=== PATIENT | male | born 1955 | race Caucasian/White ===

== ENCOUNTER → 2021-10-18 06:57 | Outpatient (CLI) | payer OTHER, SELFPAY ==
[2021-10-18 08:13] LABS: BUN Creatinine Ratio 33.7 (6-22); Blood Urea Nitrogen 28 mg/dL (9-20); Calcium 8.9 mg/dL (8.4-10.2); Carbon Dioxide 26 mmol/L (22-32); Chloride 105 mmol/L (98-107); Cholesterol 120 mg/dL (140-199); Estimated Glomerular Filt Rate > 60.0 mL/min (>60); Glucose 131 mg/dL (80-110); HDL Cholesterol 52 mg/dL (40-60); HEMOLYSIS < 15 (0-50); LDL Cholesterol Calculated 55 mg/dL (<100); Potassium 4.5 mmol/L (3.4-5.1); Sodium 140 mmol/L (137-145); Triglycerides 63 mg/dL (35-150)
[2021-10-18 08:43] LABS: Prostate Specific Antigen Scrn 1.18 ng/mL (0.1-4.0)
[2021-10-18 09:00] LABS: Creatinine Urine Random 175.3 mg/dL
[2021-10-18 09:05] LABS: Microalbumi Creatinin Ratio Ur 7.4 ug/mg CR (<30); Microalbumin Urine Random 1.3 mg/dL (0-1.6)
== END ==
PROVIDERS: Family Provider Orthopaedic Surgery; Referring Provider Family Medicine; Visit Provider Family Medicine
DX: Z12.5 Encounter for screening for malignant neoplasm of prostate (principal); E78.2 Mixed hyperlipidemia; E11.9 Type 2 diabetes mellitus without complications; I10 Essential (primary) hypertension
CPT/HCPCS: 36415; 80048; 80061; 82043; 82570; G0103

== ENCOUNTER 2022-12-19 08:22 | Emergency (ER) | payer MEDICARE, SELFPAY ==
[2022-12-19] VITALS (9 sets, daily range): BP systolic 151–187; BP diastolic 64–88; PULSE 79–89; RESP 19; TEMP 36.9; O2SAT 95–97; BMI 26.9
--- NOTE | 2022-12-19 08:36 | DI.CT.S_ITS ---
PROCEDURE: CT KIDNEY URETER BLADDER (KUB) INDICATIONS: left sided flank pain eval for stone TECHNIQUE: Axial sections were acquired from the lung bases to the pubic symphysis. Coronal and sagittal reformats were performed. For radiation dose reduction, the following was used: automated exposure control, adjustment of mA and/or kV according to patient size. COMPARISON: None. FINDINGS: Lung bases: No pleural effusion. Patchy consolidative and ground-glass opacity present in the right lower lobe. URINARY: Punctate nonobstructing stone present at the right mid kidney. No left urinary stone visualized. No hydroureteronephrosis bilaterally. No bladder stones visualized. ABDOMEN: Liver: Unremarkable. Gallbladder: Unremarkable. Biliary ducts: Unremarkable. Pancreas: Unremarkable. Spleen: Unremarkable. Adrenal Glands: Unremarkable. Stomach and Bowel: No bowel obstruction. Moderate-severe predominantly sigmoid colonic diverticulosis without evidence of acute diverticulitis. Peritoneum: No abnormal intraperitoneal fluid. No free air. Abdominal Nodes: No enlarged retroperitoneal or mesenteric lymph nodes. Vessels: Aorta and inferior vena cava are normal in size. PELVIS: Pelvic Organs: Unremarkable. Pelvic Nodes: Unremarkable. Miscellaneous: Small fat containing right inguinal hernia. Bones: Multilevel degenerative change of the visualized spine. Bilateral L5-S1 pars defects with grade 1 anterolisthesis L5 on S1. IMPRESSION: 1. No left-sided urinary stone identified. No hydroureteronephrosis bilaterally. 2. Punctate nonobstructing right kidney stone present. 3. Right lower lobe opacities present suspicious for pneumonia and/or aspiration. Dictated by: Salvador Anaya M.D. on 12/19/2022 at 8:52 Approved by: Salvador Anaya M.D. on 12/19/2022 at 9:04
--- NOTE | 2022-12-19 08:36 | ED_ITS ---
HPI - General Adult General Chief complaint: Urogenital-Male Stated complaint: poss kidney stones T-1 fever/chills/tired Time Seen by Provider: 12/19/22 08:24 Source: patient Mode of arrival: Ambulatory Limitations: no limitations History of Present Illness HPI narrative: Patient is a 67-year-old male who many years ago had a kidney stone who is here for evaluation of left-sided back/flank pain. Is also having some dysuria. He also states he is constipated. He is also having chills. The symptoms started yesterday. No vomiting. He does feel very tired. He states that he thinks that this may feel like a prior kidney stone but not 100% convinced. Related Data Previous Rx's Medication Instructions Recorded azithromycin 250 mg tablet See Rx Instructions PO .COMPLEX #6 12/19/22 tabs Allergies Allergy/AdvReac Type Severity Reaction Status Date / Time No Known Drug Allergies Allergy Verified 12/19/22 09:13 Review of Systems Constitutional Constitutional: Reports system reviewed and no additional complaints, except as documented Gastrointestinal Gastrointestinal: Reports system reviewed and no additional complaints, except as documented Genitourinary Genitourinary: Reports system reviewed and no additional complaints, except as documented Musculoskeletal Musculoskeletal: Reports system reviewed and no additional complaints, except as documented Integumentary/Breasts Skin/Breast: Reports system reviewed and no additional complaints, except as documented Patient History Social History Smoking Status: Former smoker Exam Initial Vital Signs Initial Vital Signs: Vital Signs Temperature 98.5 F 12/19/22 08:38 Pulse Rate 80 12/19/22 08:38 Respiratory Rate 19 12/19/22 08:38 Blood Pressure 177/84 H 12/19/22 08:38 Pulse Oximetry 97 12/19/22 08:38 Oxygen Delivery Method Room Air 12/19/22 08:38 Const General: cooperative, comfortable and No ill appearing HENMT Head: normal to inspection and normocephalic Resp Effort & Inspection: normal respiratory effort Auscultation: clear to auscultation bilaterally Cardio Rate: regular rate GI Inspection: normal to inspection Palpation: soft and No tender Back/Spine/Pelvis Other: No specific CVA tenderness but he describes the discomfort over the left flank. Skin General: no rashes or lesions noted Neuro General: patient alert, patient awake and moves all extremities Extrem General: normal to inspection and capillary refill normal Course Orders Ordered: ED Orders 12/19/22 08:27 Basic Metabolic Panel Stat Complete Blood Count AUTO DIFF Stat 12/19/22 08:36 CT kidney ureter bladder (KUB) Stat Urine Culture Stat Urine Microscopic Stat 12/19/22 09:12 XR chest 2V Stat Vital Signs Vital signs: Vital Signs - 8 hr 12/19/22 08:38 12/19/22 08:44 12/19/22 08:45 Temperature 98.5 F Pulse Rate 80 85 Respiratory Rate 19 Blood Pressure 177/84 H 155/70 H Pulse Oximetry 97 97 Oxygen Delivery Method Room Air 12/19/22 08:45 12/19/22 09:00 12/19/22 09:00 Temperature Pulse Rate 84 79 Respiratory Rate Blood Pressure 151/64 H Pulse Oximetry 97 96 Oxygen Delivery Method 12/19/22 09:15 12/19/22 09:15 Temperature Pulse Rate 89 Respiratory Rate Blood Pressure 157/74 H Pulse Oximetry 97 Oxygen Delivery Method Medical Decision Making Lab Data Lab results reviewed: Yes I reviewed the patient's lab results. 12/19/22 08:27 12/19/22 08:27 Labs: Lab Results 12/19/22 12/19/22 12/19/22 Range/Units 08:27 08:27 08:36 WBC 7.4 (4.5-11.0) X10^3/uL RBC 4.84 (4.5-5.9) X10^6/uL Hgb 15.6 (13.5-17.5) g/dL Hct 44.4 (41-53) % MCV 91.8 (80-100) fL MCH 32.2 (26-34) PG MCHC 35.1 (30-36) % RDW 13.3 (11.6-14.8) % Plt Count 202 (150-400) X10^3/uL Neut % (Auto) 77.4 H (50-75) % Lymph % (Auto) 12.0 L (25-40) % [place] % (Auto) 9.9 (3-14) % Eos % (Auto) 0.2 L (2-4) % Baso % (Auto) 0.5 (0-2) % Neut # (Auto) 5700 (4869-5391) /uL Lymph # (Auto) 900 L (2291-7793) /uL [place] # (Auto) 700 (0-900) /uL Eos # (Auto) 0 (0-450) /uL Baso # (Auto) 0 (0-100) /uL Sodium 132 L (137-145) mmol/L Potassium 4.3 (3.4-5.1) mmol/L Chloride 95 L (98-107) mmol/L Carbon Dioxide 28 (22-32) mmol/L BUN 12 (9-20) mg/dL Creatinine 1.01 (0.66-1.25) mg/dL Estimated GFR > 60 (>60) mL/min BUN/Creatinine Ratio 11.9 (6-22) Glucose 144 H (80-110) mg/dL Calcium 9.2 (8.4-10.2) mg/dL Urine RBC None seen (0-5/HPF) Urine WBC None seen (0-5/HPF) Ur Squamous Epith Cells None seen (0-5/HPF) Urine Bacteria None seen (None) Ur Culture Indicated? Cult not indicated Urine Dip Bedside Urine Glucose Negative Bedside Urine Bilirubin - Negative Bedside Urine Ketone + 15 Urine Specific [place] 1.015 Bedside Urine Occult Blood - Negative Bedside Urine pH 5.5 Bedside Urine Protein - Negative Bedside Urine Urobilinogen - Negative Bedside Urine Nitrite - Negative Bedside Urine Leukocytes - Negative Esterase Point of care testing: Urine Dip Bedside Urine Glucose Negative Bedside Urine Bilirubin - Negative Bedside Urine Ketone + 15 Urine Specific [place] 1.015 Bedside Urine Occult Blood - Negative Bedside Urine pH 5.5 Bedside Urine Protein - Negative Bedside Urine Urobilinogen - Negative Bedside Urine Nitrite - Negative Bedside Urine Leukocytes - Negative Esterase Imaging Data Chest x-ray: Radiologist's Impression: PROCEDURE:? CT KIDNEY URETER BLADDER (KUB) ? INDICATIONS:? left sided flank pain eval for stone ? TECHNIQUE:? Axial sections were acquired from the lung bases to the pubic symphysis.? Coronal and sagittal reformats were performed.? For radiation dose reduction, the following was used: ?automated exposure control, adjustment of mA and/or kV according to patient size.? ? COMPARISON:? None. ? FINDINGS:? ? Lung bases:? No pleural effusion.? Patchy consolidative and ground-glass opacity present in the right lower lobe. ? URINARY:? Punctate nonobstructing stone present at the right mid kidney.? No left urinary stone visualized.? No hydroureteronephrosis bilaterally.? No bladder stones visualized. ? ABDOMEN: Liver:? Unremarkable.? ? Gallbladder:? Unremarkable.? ? Biliary ducts:? Unremarkable.? ? Pancreas:? Unremarkable.? ? Spleen:? Unremarkable.? ? Adrenal Glands:? Unremarkable.? ? ? Stomach and Bowel:? No bowel obstruction.? Moderate-severe predominantly sigmoid colonic diverticulosis without evidence of acute diverticulitis. Peritoneum:? No abnormal intraperitoneal fluid.? No free air.? ? Abdominal Nodes:? No enlarged retroperitoneal or mesenteric lymph nodes.? Vessels:? Aorta and inferior vena cava are normal in size.? ? PELVIS: Pelvic Organs:? Unremarkable.? ? Pelvic Nodes: Unremarkable. Miscellaneous:? Small fat containing right inguinal hernia. ? Bones:? Multilevel degenerative change of the visualized spine.? Bilateral L5-S1 pars defects with grade 1 anterolisthesis L5 on S1. ? IMPRESSION:? ? 1. No left-sided urinary stone identified.? No hydroureteronephrosis bilaterally. 2. Punctate nonobstructing right kidney stone present. 3. Right lower lobe opacities present suspicious for pneumonia and/or aspiration. CT scan - abdomen/pelvis: Radiologist's Impression: PROCEDURE:? XR CHEST 2V ? INDICATIONS:? eval for RLL PNA ? TECHNIQUE:? 2 views of the chest were acquired.? ? COMPARISON:? None. ? FINDINGS:? ? Surgical changes and devices:? None.? ? Lungs and pleura:? Ill-defined airspace opacities are seen in right lower lung field.? Left basilar atelectasis is also seen.? No pleural effusions or pneumothorax.? ? Mediastinum:? Mediastinal contours are normal.? Heart size is normal.? ? Bones and chest wall:? No suspicious bony abnormalities.? Soft tissues appear unremarkable.? ? IMPRESSION:? Finding is suggestive of small right lower lobe infiltrates.? Left basilar atelectasis.? No pleural effusion or pneumothorax. MDM Narrative Medical decision making narrative: CT scan of the abdomen shows no signs of kidney stones or other intra-abdominal surgical issues. Has no specific etiology to explain the patient's symptoms today. He does have findings on the CT scan that could be consistent with a right lower lobe pneumonia. Chest x-ray confirms this. This very well could be what is causing his fevers and chills in the way he has been feeling for the past couple days. He understands this does not directly explain his left-sided flank pain. We will place the patient on antibiotics. He was given return precautions and follow-up instructions. He expressed understanding and agreement. Discharge Plan Departure Patient Disposition: Home Clinical Impression: Pneumonia Instructions: DI for Pneumonia -- Adult Activity Restrictions/Additional Instructions: I do recommend that you take the antibiotics as directed. You can also consider taking a medicine called famotidine. This can be a medicine to help with any GI related issues in the 2 weeks when you are not taking your other reflux medications. Return to the emergency department for any new or worsening symptoms. Prescriptions: New azithromycin 250 mg tablet See Rx Instructions .ROUTE .COMPLEX Qty: 6 0RF Rx Instructions: For 250 mg dose pack: take 500 mg today (day 1), then 250 mg for 4 days (days 2-5) Referrals: Kyaw Rees MD [Primary Care Provider] - Stand Alone Forms: Patient Portal/API
[2022-12-19 08:48] LABS: Add Manual Diff / Slide Review NO; Basophils Absolute Auto 0 /uL (0-100); Basophils Percent Auto 0.5 % (0-2); Eosinophils Absolute Auto 0 /uL (0-450); Eosinophils Percent Auto 0.2 % (2-4); Hematocrit 44.4 % (41-53); Hemoglobin 15.6 g/dL (13.5-17.5); Lymphocytes Absolute Auto 900 /uL (1100-4500); Mean Corpuscular HGB Conc 35.1 % (30-36); Mean Corpuscular Hemoglobin 32.2 PG (26-34); Mean Corpuscular Volume 91.8 fL (80-100); Monocytes Absolute Auto 700 /uL (0-900); Monocytes Percent Auto 9.9 % (3-14); Neutrophils Absolute Auto 5700 /uL (1500-7000); Neutrophils Percent Auto 77.4 % (50-75); Platelet Count 202 X10^3/uL (150-400); Red Blood Cell Count 4.84 X10^6/uL (4.5-5.9); Red Cell Distribution Width 13.3 % (11.6-14.8); White Blood Cell Count 7.4 X10^3/uL (4.5-11.0)
[2022-12-19 08:52] LABS: Bacteria Urine None Seen; Culture Indicated Urine Cult Not Indicated; RBC Urine None Seen (0-5/HPF); Squamous Epithelial Cell Urine None Seen (0-5/HPF); WBC Urine None Seen (0-5/HPF)
[2022-12-19 09:01] LABS: BUN Creatinine Ratio 11.9 (6-22); Blood Urea Nitrogen 12 mg/dL (9-20); Calcium 9.2 mg/dL (8.4-10.2); Carbon Dioxide 28 mmol/L (22-32); Chloride 95 mmol/L (98-107); Estimated Glomerular Filt Rate > 60 mL/min (>60); Glucose 144 mg/dL (80-110); HEMOLYSIS 16 (0-50); Potassium 4.3 mmol/L (3.4-5.1); Sodium 132 mmol/L (137-145)
--- NOTE | 2022-12-19 09:12 | DI.RAD.S_ITS ---
PROCEDURE: XR CHEST 2V INDICATIONS: eval for RLL PNA TECHNIQUE: 2 views of the chest were acquired. COMPARISON: None. FINDINGS: Surgical changes and devices: None. Lungs and pleura: Ill-defined airspace opacities are seen in right lower lung field. Left basilar atelectasis is also seen. No pleural effusions or pneumothorax. Mediastinum: Mediastinal contours are normal. Heart size is normal. Bones and chest wall: No suspicious bony abnormalities. Soft tissues appear unremarkable. IMPRESSION: Finding is suggestive of small right lower lobe infiltrates. Left basilar atelectasis. No pleural effusion or pneumothorax. Dictated by: Malik Wayne M.D. on 12/19/2022 at 8:38 Approved by: Malik Wayne M.D. on 12/19/2022 at 8:38
== END 2022-12-19 10:14 | disposition home or self-care (01) ==
PROVIDERS: Emergency Provider Emergency Medicine; Family Provider Orthopaedic Surgery; PCP Family Medicine
DX: J18.9 Pneumonia, unspecified organism (principal); R30.0 Dysuria; R10.9 Unspecified abdominal pain; Z87.442 Personal history of urinary calculi
CPT/HCPCS: 36415; 71046; 74176; 80048; 81003; 81015; 85025; 87086; 99284

== ENCOUNTER → 2023-02-13 09:36 | Outpatient (CLI) | payer MEDICARE, SELFPAY ==
[2023-02-13 11:22] LABS: Alanine Aminotransferase 32 IU/L (<50); Albumin 4.6 g/dL (3.5-5.0); Albumin Globulin Ratio 1.6 (1.0-2.8); Alkaline Phosphatase 55 U/L (38-126); Aspartate Aminotransferase 38 IU/L (17-59); Bilirubin Unconjugated 0.9 mg/dL (0.0-1.1); Globulin 2.9 g/dL (1.7-4.1); HEMOLYSIS < 15 (0-50); Total Protein 7.5 g/dL (6.3-8.2)
[2023-02-13 11:42] LABS: Creatinine Urine Random 68.1 mg/dL
[2023-02-13 11:47] LABS: Microalbumin Urine Random < 0.6 mg/dL (0-1.6)
[2023-02-14 03:18] LABS: Labcorp Hemoglobin (Hb) A1c 6.3 % (4.8-5.6)
== END ==
PROVIDERS: Family Provider Orthopaedic Surgery; PCP Internal Medicine; Referring Provider Internal Medicine; Visit Provider Internal Medicine
DX: N40.1 Benign prostatic hyperplasia with lower urinary tract symptoms; E11.69 Type 2 diabetes mellitus with other specified complication; E78.5 Hyperlipidemia, unspecified; E78.2 Mixed hyperlipidemia; N13.8 Other obstructive and reflux uropathy
CPT/HCPCS: 36415; 80076; 82043; 82570; 83036; 84153; 84443

== ENCOUNTER → 2023-09-05 11:55 | Outpatient (CLI) | payer MEDICARE, SELFPAY ==
[2023-09-05 13:01] LABS: Aspartate Aminotransferase 33 IU/L (17-59); BUN Creatinine Ratio 32.1 (6-22); Blood Urea Nitrogen 25 mg/dL (9-20); Calcium 9.7 mg/dL (8.4-10.2); Carbon Dioxide 25 mmol/L (22-32); Chloride 104 mmol/L (98-107); Cholesterol 104 mg/dL (140-199); Estimated Glomerular Filt Rate > 60 mL/min (>60); Glucose 153 mg/dL (80-110); HDL Cholesterol 53 mg/dL (40-60); HEMOLYSIS < 15 (0-50); LDL Cholesterol Calculated 24 mg/dL (<100); Potassium 4.3 mmol/L (3.4-5.1); Sodium 139 mmol/L (137-145); Triglycerides 137 mg/dL (35-150)
== END ==
PROVIDERS: Family Provider Orthopaedic Surgery; PCP Internal Medicine; Referring Provider Internal Medicine; Visit Provider Internal Medicine
DX: E11.69 Type 2 diabetes mellitus with other specified complication (principal); E78.5 Hyperlipidemia, unspecified; E78.2 Mixed hyperlipidemia
CPT/HCPCS: 36415; 80048; 80061; 83036; 84450

== ENCOUNTER → 2024-07-01 10:43 | Outpatient (CLI) | payer MEDICARE, SELFPAY ==
[2024-07-01 12:44] LABS: Appearance Urine UA CLEAR; Bilirubin Urine UA NEGATIVE (NEGATIVE); Color Urine UA YELLOW; Glucose Urine UA NEGATIVE (Negative); Ketones Urine UA NEGATIVE (NEGATIVE); Leukocyte Esterase Urine UA NEGATIVE (NEGATIVE); Nitrite Urine UA NEGATIVE (Negative); Occult Blood Urine UA NEGATIVE (Negative); Protein Urine UA NEGATIVE (Negative); Specific Gravity Urine UA 1.015 (1.000-1.035); pH Urine UA 6.5 (4.5-8.0)
[2024-07-01 12:52] LABS: Urine Volume 10mL (spun)
[2024-07-01 12:53] LABS: Bacteria Urine None Seen; Culture Indicated Urine Cult Not Indicated; RBC Urine None Seen (0-5/HPF); Squamous Epithelial Cell Urine None Seen (0-5/HPF); WBC Urine None Seen (0-5/HPF)
[2024-07-01 12:56] LABS: Aspartate Aminotransferase 38 IU/L (17-59); BUN Creatinine Ratio 29.5 (6-22); Blood Urea Nitrogen 26 mg/dL (9-20); Calcium 9.8 mg/dL (8.4-10.2); Carbon Dioxide 27 mmol/L (22-32); Chloride 102 mmol/L (98-107); Cholesterol 102 mg/dL (140-199); Estimated Glomerular Filt Rate > 60 mL/min (>60); Glucose 108 mg/dL (80-110); HDL Cholesterol 54 mg/dL (40-60); HEMOLYSIS < 15 (0-50); LDL Cholesterol Calculated 18 mg/dL (<100); Potassium 5.3 mmol/L (3.4-5.1); Sodium 137 mmol/L (137-145); Triglycerides 149 mg/dL (35-150)
[2024-07-01 13:24] LABS: Prostate Specific Antigen 1.09 ng/mL (0.10-4.00)
[2024-07-01 15:48] LABS: Creatinine Urine Random 212.18 mg/dL
[2024-07-01 15:50] LABS: Microalbumin Urine Random 2.4 mg/dL (0-1.6)
== END ==
PROVIDERS: Family Provider Orthopaedic Surgery; PCP Internal Medicine; Referring Provider Internal Medicine; Visit Provider Internal Medicine
DX: E11.69 Type 2 diabetes mellitus with other specified complication (principal); N40.1 Benign prostatic hyperplasia with lower urinary tract symptoms; E78.5 Hyperlipidemia, unspecified; E78.2 Mixed hyperlipidemia; N13.8 Other obstructive and reflux uropathy; R10.9 Unspecified abdominal pain
CPT/HCPCS: 36415; 80048; 80061; 81001; 82043; 82570; 83036; 84153; 84450

== ENCOUNTER → 2024-07-21 10:33 | Outpatient (CLI) | payer MEDICARE, SELFPAY ==
--- NOTE | 2024-07-21 10:34 | DI.US.S_ITS ---
PROCEDURE: US RENAL COMPLETE INDICATIONS: RIGHT FLANK PAIN TECHNIQUE: Real-time scanning was performed of the kidneys and bladder, with image documentation. COMPARISON: None. FINDINGS: Kidneys: Kidneys are normal in size. Right kidney measures 11.8 cm long; left kidney measures 13.3 cm long. Right renal cortical thickness is 1.9 cm; left renal cortical thickness is 2 cm. Renal cortical echotexture is normal. No hydronephrosis. Questionable 0.7 cm calcification/stone within the right kidney midpole. No suspicious solid mass lesions. Bladder: Pre-void bladder volume is 64.7 mL. Post-void residual is 0 mL. Pre-void images demonstrate no intraluminal masses or stones. On pre-void images, bilateral ureteral jets are noted with color Doppler interrogation. (Of note, ureteral jets may not be detectable in up to 25% of cases due to insufficient differences in specific gravity between ureteral and bladder urine). Miscellaneous: No free pelvic fluid. IMPRESSION: Possible 0.7 cm nonobstructive right renal stone at the midpole. Otherwise, normal sonographic appearance of the kidneys and urinary bladder. Dictated by: Boom Guevara M.D. on 07/22/2024 at 8:26 Approved by: Boom Guevara M.D. on 07/22/2024 at 8:29
== END ==
PROVIDERS: Family Provider Orthopaedic Surgery; PCP Internal Medicine; Referring Provider Internal Medicine; Visit Provider Internal Medicine
DX: R10.9 Unspecified abdominal pain (principal)
CPT/HCPCS: 76770

== ENCOUNTER 2024-10-29 11:30 | Day surgery (SDC) | payer MEDICARE, SELFPAY ==
--- NOTE | 2024-10-29 | PATH_ITS ---
[facility] Accession Number: [id number] No. of containers..01 Tissue . 01 Material submitted: . colon - ASCENDING COLON POLYP . 01 Diagnosis: ASCENDING COLON POLYP: Tubular adenoma. [facility] 11/03/2024 1132 Local . 01 Electronically signed: . Jay Thompson MD, PhD, Pathologist NPI- [id number] . 01 Gross description: . ASCENDING COLON POLYP: Received in formalin is 1 fragment(s) of TISSUE/MUCOID measuring 0.7 x 0.3 x 0.3 cm submitted entirely in 1 cassette(s) /CAS[facility]IRO 11/02/2024 1706 Local . 01 Pathologist provided ICD-10: D12.2 . 01 CPT . 154549 Specimen Comment: A courtesy copy of this report has been sent to [phone] Performed at: [address] [facility] [id number] MD Boom Page MD Phone: [phone]
[2024-10-29] MEDS: LACTATED RINGERS 1,000 ML 100 ML IV (11:46)
[2024-10-29 12:10] VITALS: BP 149/93; PULSE 84; RESP 16; TEMP 36.8; O2SAT 97
--- NOTE | 2024-10-29 12:56 | P.HP_ITS ---
History of Present Illness History of Present Illness Date Patient Seen: 10/29/24 Time Patient Seen: 12:57 Chief complaint: Screening Colonoscopy Narrative: Stan is a 69-year-old man with rectal bleeding and hemorrhoids. See the office note from September for details. He had a improvement in his symptoms up until he started the prep last night. [facility] Medical History Chronic insomnia DM type 2 with diabetic dyslipidemia Essential hypertension Fractures GERD without esophagitis Mixed hyperlipidemia Osteoarthritis, hand, primary localized Tinea unguium Surgical History Anesthesia History of knee replacement (~2014) History of mandibular surgery (~1981) Social History details: (Jnena), two children, retired parking supervisor Smoking Status: Former smoker alcohol intake: current Meds Home Medications and Allergies Home Medications Medication Instructions Recorded Confirmed Type omeprazole 20 mg capsule,delayed 20 mg PO DAILY 01/16/23 10/29/24 History release cholecalciferol (vitamin D3) 25 25 mcg PO DAILY 01/18/23 09/09/24 History mcg (1,000 unit) capsule cyanocobalamin (vitamin B-12) 100 100 mcg PO DAILY 01/18/23 09/09/24 History mcg tablet (Vitamin B-12) omega-3 fatty acids 1,000 mg 1,000 mg PO DAILY 01/18/23 09/09/24 History capsule lancets (Accu-Chek Fastclix Lancet #100 ea 10/31/23 09/09/24 Rx Drum) blood sugar diagnostic (Accu-Chek #100 ea 01/13/24 09/09/24 Rx Guide test strips) metformin 1,000 mg tablet 1,000 mg PO BIDWMEAL #180 tabs 01/13/24 09/09/24 Rx rosuvastatin 10 mg tablet 10 mg PO DAILY #90 tabs 02/10/24 09/09/24 Rx losartan 25 mg tablet 25 mg PO DAILY #90 tabs 05/04/24 10/29/24 Rx triamcinolone acetonide 0.1 % 1 applic topical BID PRN 08/26/24 09/09/24 Rx topical cream hemorrhoids #15 grams sodium,potassium,mag sulfates 17.5 See Rx Instructions PO .COMPLEX 09/11/24 Rx gram-3.13 gram-1.6 gram oral soln #354 mL (Suprep Bowel Prep Kit) metformin 1,000 mg tablet 1,000 mg PO BID 10/29/24 10/29/24 History Allergies Allergy/AdvReac Type Severity Reaction Status Date / Time No Known Drug Allergies Allergy Verified 10/29/24 12:01 Exam Vital Signs (past 8 hours): - 10/29/24 12:10 Temperature 98.2 F Pulse Rate 84 Respiratory Rate 16 Blood Pressure 149/93 H Pulse Oximetry 97 Const General: healthy appearing Assessment & Plan Assessment and plan (1) Rectal bleeding: Status: Acute Plan Colonoscopy Time-Based Coding :: [TOTAL MINUTES] spent with patient and on the chart (including review of chart, obtaining history, exam, reviewing outside data, placing orders, documenting exam and treatment plan, and counseling patient) on [DATE]. [employer]EE [employer] Document charge(s): No
--- NOTE | 2024-10-29 14:17 | PM.OP.EC ---
Operative Date/Time/Diagnoses Date of procedure: 10/29/24 Time of procedure: 14:17 Pre-op diagnosis: Rectal bleeding and hemorrhoids Post-op diagnosis: same Procedure & Clinicians Study performed: Colonoscopy and rubber-band ligation of internal hemorrhoids Same procedure as scheduled: Yes Surgeon: Alberto Palacios Procedure Notes Procedure in detail: Surgeon: Alberto Palacios MD Anesthesia: Derrick Christine D.O. Procedure: The patient was brought to the endoscopy suite, placed in left lateral decubitus position. The patient was connected to monitoring devices. A time-out was performed. Sedation was administered. Once the patient was adequately sedated, a digital rectal exam was performed and was normal. The scope was then inserted and advanced to the cecum where the appendiceal orifice was identified and photographed. The scope was then slowly withdrawn over greater than 6 minutes. The mucosa was thoroughly inspected. There was a 5 mm polyp in the ascending colon removed with a cold snare. The scope was retroflexed in the rectum. Internal hemorrhoids were noted. The scope was straightened and removed. Next the anoscope was inserted. Rubber-band ligation was performed to the right lateral and left posterior columns. The patient was awakened and brought to recovery. Scope withdrawal time: 15 minutes Sedation time: 22 minutes EBL: 2 mL Findings: 5 mm ascending colon polyp and internal hemorrhoids Post-procedure Disposition: PACU
[2024-10-29 14:19] VITALS: BP 118/72; PULSE 77; RESP 18; TEMP 36.1; O2SAT 96
[2024-10-29 14:24] VITALS: BP 115/67; PULSE 71; RESP 13; O2SAT 95
[2024-10-29 14:29] VITALS: BP 114/77; PULSE 67; RESP 11; TEMP 36.2; O2SAT 97
== END 2024-10-29 14:45 | disposition home or self-care (01) ==
PROVIDERS: Family Provider Orthopaedic Surgery; PCP Internal Medicine; Referring Provider Surgery; Visit Provider Surgery
PROC: 0DJD8ZZ Inspection of Lower Intestinal Tract, Via Natural or Artificial Opening Endoscopic (ICD-10-PCS; CPT 45378; principal; 2024-10-29 13:00)
DX: K62.5 Hemorrhage of anus and rectum (principal); K64.8 Other hemorrhoids
CPT/HCPCS: 46221; J2704

== ENCOUNTER → 2024-12-30 11:04 | Outpatient (CLI) | payer MEDICARE, SELFPAY ==
[2024-12-30 11:48] LABS: Hemoglobin A1C% w Est Avg Glu 6.1 % (4.0-6.0)
[2024-12-30 12:02] LABS: BUN Creatinine Ratio 26.2 (6-22); Blood Urea Nitrogen 22 mg/dL (9-20); Calcium 9.3 mg/dL (8.4-10.2); Carbon Dioxide 22 mmol/L (22-32); Chloride 104 mmol/L (98-107); Estimated Glomerular Filt Rate > 60 mL/min (>60); Glucose 113 mg/dL (70-99); HEMOLYSIS < 15 (0-50); Potassium 4.8 mmol/L (3.4-5.1); Sodium 137 mmol/L (137-145)
== END ==
PROVIDERS: Family Provider Orthopaedic Surgery; PCP Internal Medicine; Referring Provider Internal Medicine; Visit Provider Internal Medicine
DX: E11.69 Type 2 diabetes mellitus with other specified complication (principal); E78.5 Hyperlipidemia, unspecified
CPT/HCPCS: 36415; 80048; 83036

== ENCOUNTER → 2025-07-07 11:07 | Outpatient (CLI) | payer MEDICARE, SELFPAY ==
[2025-07-07 11:47] LABS: Hematocrit 44.5 % (41-53); Hemoglobin 15.3 g/dL (13.5-17.5); Mean Corpuscular HGB Conc 34.5 % (30-36); Mean Corpuscular Hemoglobin 31.7 PG (26-34); Mean Corpuscular Volume 92.0 fL (80-100); Platelet Count 213 X10^3/uL (150-400)
[2025-07-07 11:54] LABS: Hemoglobin A1C% w Est Avg Glu 6.1 % (4.0-6.0)
[2025-07-07 12:03] LABS: Blood Urea Nitrogen 22 mg/dL (9-20); Calcium 9.1 mg/dL (8.4-10.2); Carbon Dioxide 22 mmol/L (22-32); Chloride 105 mmol/L (98-107); Cholesterol 110 mg/dL (140-199); Estimated Glomerular Filt Rate > 60 mL/min (>60); Glucose 239 mg/dL (70-99); HDL Cholesterol 62 mg/dL (40-60); HEMOLYSIS 16 (0-50); Potassium 4.2 mmol/L (3.4-5.1); Sodium 138 mmol/L (137-145); Triglycerides 243 mg/dL (35-150)
[2025-07-07 12:29] LABS: TSH w/ Reflex to FT4 1.40 uIU/mL (0.47-4.68)
[2025-07-07 12:32] LABS: Prostate Specific Antigen 1.13 ng/mL (0.10-4.00)
== END ==
PROVIDERS: PCP Internal Medicine; Referring Provider Internal Medicine; Visit Provider Internal Medicine
DX: E11.69 Type 2 diabetes mellitus with other specified complication (principal); N40.1 Benign prostatic hyperplasia with lower urinary tract symptoms; E78.5 Hyperlipidemia, unspecified; N13.8 Other obstructive and reflux uropathy; E78.2 Mixed hyperlipidemia; I10 Essential (primary) hypertension
CPT/HCPCS: 36415; 80048; 80061; 82043; 82570; 83036; 84153; 84443; 84450; 85027